=== PATIENT | male | born 1965 | race African-American/Black ===

== ENCOUNTER 2018-05-21 06:21 | Emergency (ER) | payer MEDICAID ==
[~2018-05-21] VITALS: Ht 182.9 cm; Wt 88.6 kg
[~2018-05-21 06:21] MED LIST: AMLO-511 PO; ARIP5TAB8 PO; OMEP20 PO
[2018-05-21 07:32] LABS: EOSINOPHILS % (AUTO) 0.3 % (1.0-6.0); HEMATOCRIT 34.9 % (41-53); HEMOGLOBIN 11.8 g/dL (13.5-17.5); LYMPHOCYTES # (AUTO) 1.2 K/uL (1.0-4.8); LYMPHOCYTES % (AUTO) 14.1 % (22.0-44.0); MEAN CORPUSCULAR HEMOGLOBIN 29.8 pg (26.0-34.0); MEAN CORPUSCULAR HGB CONC 33.7 G/dL (31.0-37.0); MEAN CORPUSCULAR VOLUME 88 fL (80-100); MONOCYTES # (AUTO) 0.7 K/uL (0.1-1.0); MONOCYTES % (AUTO) 8.9 % (2.0-9.0); NEUTROPHILS # (AUTO) 6.2 K/uL (1.8-7.7); NEUTROPHILS % (AUTO) 75.7 % (40.0-70.0); PLATELET COUNT (AUTO) 387 K/uL (150-450); RED BLOOD CELL COUNT(AUTO) 3.95 MIL/uL (4.50-5.90); RED CELL DISTRIBUTION WIDTH 14.3 % (11.5-14.5)
[2018-05-21 07:39] LABS: ANION GAP 9 mmol/L (8-16); CALCIUM, TOTAL 8.5 mg/dL (8.8-10.5); CARBON DIOXIDE 25 mmol/L (22-29); CHLORIDE 110 mmol/L (98-107); CREATININE 1.09 mg/dL (0.60-1.30); GLOMERULAR FILTR. RATE CALC > 60 mL/min (>60); GLUCOSE,RANDOM 87 mg/dL (70-110); SODIUM SERUM 144 mmol/L (136-145); UREA NITROGEN, BLOOD 21 mg/dL (7-18)
[2018-05-21 07:45] LABS: ALANINE AMINOTRANSFERASE 52 U/L (12-78); ALBUMIN 3.2 g/dL (3.4-5.0); ALKALINE PHOSPHATASE 74 U/L (46-116); ASPARTATE AMINOTRANSFERASE 44 U/L (15-37); BILIRUBIN,TOTAL 0.6 mg/dL (0.1-1.0); TOTAL PROTEIN, SERUM 6.7 g/dL (6.4-8.2)
[2018-05-21] MEDS ORDERED: LORazepam 1 MG TABLET PO ONE (08:00)
[2018-05-21 14:37] VITALS: BP 118/74
[2018-05-21 14:48] LABS: AMPHET/METH SCREEN,URINE NEGATIVE (NEGATIVE); BARBITURATE SCREEN, URINE NEGATIVE (NEGATIVE); BENZODIAZEPINES SCREEN,URINE NEGATIVE (NEGATIVE); CANNABINOID SCREEN,URINE NEGATIVE (NEGATIVE); COCAINE SCREEN,URINE NEGATIVE (NEGATIVE); METHADONE SCREEN, URINE NEGATIVE (NEGATIVE); OPIATE SCREEN,URINE NEGATIVE (NEGATIVE); PHENCYCLIDINE SCREEN,URINE NEGATIVE (NEGATIVE)
== END 2018-05-21 14:39 | disposition home or self-care (01) ==
LOC: EMS 06:24
DX: F15.10 Other stimulant abuse, uncomplicated (principal); F20.9 Schizophrenia, unspecified; I10 Essential (primary) hypertension; F17.210 Nicotine dependence, cigarettes, uncomplicated
CPT/HCPCS: 36415; 80053; 80307; 85025; 99285; G0480

== ENCOUNTER 2019-01-15 19:41 | Inpatient (IN) | payer MEDICAID ==
[~2019-01-15] VITALS: Ht 185.4 cm; Wt 80.4 kg
[2019-01-16] MEDS ORDERED: DiphenhydrAMINE HCL 50 MG/ML VIAL IM ONE (02:15)
[2019-01-16] MEDS ORDERED: KETOROLAC TROMETHAMINE 60 MG/2 ML VIAL IM ONE (02:15)
[2019-01-16] MEDS ORDERED: HYDROmorphone 2 MG/ML SYRINGE IVP ONE (03:15)
[2019-01-16] MEDS ORDERED: MetroNIDAZOLE 750 MG/NACL 150 ML IV ONE (03:15)
[2019-01-16] MEDS ORDERED: MetroNIDAZOLE 500 MG/NACL 100 ML IV ONE (03:15)
[2019-01-16 03:34] LABS: BILIRUBIN,TOTAL 0.6 mg/dL (0.1-1.0); CALCIUM, TOTAL 8.6 mg/dL (8.8-10.5); CREATININE 2.4 mg/dL (0.60-1.30); POTASSIUM 5.4 mmol/L (3.5-5.1); TOTAL PROTEIN, SERUM 6.3 g/dL (6.4-8.2)
[2019-01-16 03:35] LABS: HEMOGLOBIN 16.4 g/dL (13.5-17.5); MEAN CORPUSCULAR HEMOGLOBIN 28.7 pg (26.0-34.0); MEAN CORPUSCULAR HGB CONC 32.8 G/dL (31.0-37.0); MEAN CORPUSCULAR VOLUME 87 fL (80-100); RED BLOOD CELL COUNT(AUTO) 5.72 MIL/uL (4.50-5.90); RED CELL DISTRIBUTION WIDTH 13.8 % (11.5-14.5)
[2019-01-16 03:41] LABS: PLATELET COUNT (AUTO) 495 K/uL (150-450)
[2019-01-16] MEDS ORDERED: SODIUM CHLORIDE 0.9% 2,400 ML IV ONE (03:47)
[2019-01-16 03:59] LABS: BAND NEUTROPHILS % (MANUAL) 7 % (0-5); LYMPHOCYTES % (MANUAL) 1 % (22-44); MONOCYTES % (MANUAL) 8 % (2-9); SEGMENTED NEUTROPHILS % 84 % (40-70)
[2019-01-16 04:00] LABS: WBC MORPHOLOGY HYPERSEGMENTED NEUT
[2019-01-16] MEDS ORDERED: CefTRIAXone 1 GM/DEXTROSE 50 ML IV ONE (04:00)
[2019-01-16 04:21] LABS: LACTIC ACID 2.7 mmol/L (0.4-2.0)
[2019-01-16] MEDS ORDERED: CefTRIAXone SODIUM 2 GM in DEXTROSE 5%-WATER 50 ML IV ONE (04:30)
[2019-01-16 05:24] LABS: APPEARANCE,URINE CLOUDY (CLEAR); GLUCOSE, URINE (UA) NEGATIVE (NEGATIVE); KETONES,URINE TRACE mg/dL (NEGATIVE); LEUKOCYTE ESTERASE ,URINE NEGATIVE (NEGATIVE); NITRATE,URINE NEGATIVE (NEGATIVE); OCCULT BLOOD,URINE NEGATIVE (NEGATIVE); PROTEIN,URINE POS 1+ (NEGATIVE)
[2019-01-16 05:25] LABS: BILIRUBIN,URINE PRELIM. POSITIVE (NEGATIVE)
[2019-01-16 05:29] LABS: AMPHET/METH SCREEN,URINE POSITIVE (NEGATIVE); BARBITURATE SCREEN, URINE NEGATIVE (NEGATIVE); BENZODIAZEPINES SCREEN,URINE NEGATIVE (NEGATIVE); CANNABINOID SCREEN,URINE NEGATIVE (NEGATIVE); COCAINE SCREEN,URINE NEGATIVE (NEGATIVE); METHADONE SCREEN, URINE NEGATIVE (NEGATIVE); OPIATE SCREEN,URINE NEGATIVE (NEGATIVE)
[2019-01-16] MEDS ORDERED: LEVOFLOXACIN 750 MG/D5% WATER 150 ML IV ONE (05:45)
[2019-01-16 05:58] LABS: PHENCYCLIDINE SCREEN,URINE NEGATIVE (NEGATIVE)
[2019-01-16] MEDS ORDERED: VANCOMYCIN HCL 1 GM/D5% WATER 200 ML IV ONE (06:00)
[2019-01-16 06:08] LABS: BACTERIA,URINE Few /HPF (None Seen); RBC,URINE 0-2 /HPF (0-2); SQUAMOUS EPITHELIAL CELL,UR Rare /LPF (None Seen); WBC,URINE 0-2 /HPF (0-5)
[2019-01-16 08:29] VITALS: BP 100/63
[2019-01-16] MEDS ORDERED: SODIUM CHLORIDE 0.9% 500 ML IV ONE (09:32)
[2019-01-16 11:40] VITALS: BP 116/51
[2019-01-16] MEDS ORDERED: *CLINICAL-LEVOFLOXACIN IVPB DOSING CLINICAL ONE (11:45)
[2019-01-16] MEDS ORDERED: MORPHINE SULFATE 2 MG/ML SYRINGE IVP PRN (11:45)
[2019-01-16] MEDS ORDERED: PROPOFOL 1% 20 ML VIAL IVP ONE (12:00)
[2019-01-16] MEDS ORDERED: MetroNIDAZOLE 500 MG/NACL 100 ML IV SCH (12:00)
[2019-01-16] MEDS ORDERED: FentaNYL CITRATE-PF 100 MCG/2 ML VIAL IVP ONE (12:00)
[2019-01-16] MEDS ORDERED: 0.9% SODIUM CHLORIDE 10 ML VIAL IVP ONE (12:00)
[2019-01-16] MEDS ORDERED: PHENYLEPHRINE HCL 10 MG/ML VIAL IVP ONE (12:00)
[2019-01-16] MEDS ORDERED: ROCURONIUM BROMIDE 10 MG/ML 5 ML VIAL IVP ONE (12:00)
[2019-01-16] MEDS ORDERED: MIDAZOLAM HCL 2 MG/2 ML VIAL IVP ONE (12:00)
[2019-01-16] MEDS ORDERED: SUCCINYLCHOLINE CHLORIDE 20 MG/ML 10 ML VIAL IVP ONE (12:00)
[2019-01-16] MEDS ORDERED: EPHEDrine SULFATE 50 MG/ML VIAL IM ONE (12:00)
[2019-01-16] MEDS ORDERED: SODIUM CHLORIDE 0.9% 1,000 ML IV ONE ×2 (12:23→13:05)
[2019-01-16] MEDS: SODIUM CHLORIDE 0.9% 1,000 ML IV SCH ×2 (12:24→21:45)
[2019-01-16] MEDS ORDERED: SODIUM CL IRRIG SOLN BAG 3,000 ML IRRIG ONE (13:45)
[2019-01-16] MEDS ORDERED: HYDROmorphone 2 MG/ML SYRINGE IVP PRN ×2 (14:15→14:45)
[2019-01-16] MEDS ORDERED: FentaNYL CITRATE-PF 100 MCG/2 ML VIAL IVP PRN (14:15)
[2019-01-16] MEDS ORDERED: MEPERIDINE-PF 25 MG/ML VIAL IVP PRN (14:15)
[2019-01-16] MEDS ORDERED: MORPHINE SULFATE 4 MG/ML SYRINGE IVP PRN (14:45)
[2019-01-16] MEDS ORDERED: HYDROCODONE/ACETAMINOPHEN 5-325 MG TABLET PO PRN (14:45)
[2019-01-16] MEDS ORDERED: CLINDAMYCIN 900 MG/D5% WATER 50 ML IV SCH (16:00)
[2019-01-16] MEDS ORDERED: *CLINICAL-CEFEPIME DOSING CLINICAL ONE (17:00)
[2019-01-16 17:09] VITALS: BP 155/96
[2019-01-16] MEDS ORDERED: CEFEPIME HCL 1 GM in DEXTROSE 5%-WATER 50 ML IV SCH (18:00)
[2019-01-16 19:45] VITALS: BP 153/106
[2019-01-16] MEDS ORDERED: OXYGEN THERAPY IH SCH (20:00)
[2019-01-16] MEDS ORDERED: FAMOTIDINE 20 MG TABLET PO SCH (21:00)
[2019-01-16] MEDS ORDERED: MORPHINE SULFATE 4 MG/ML SYRINGE IM PRN (23:45)
[2019-01-16] MEDS ORDERED: HYDROmorphone 2 MG/ML SYRINGE IM PRN (23:45)
[2019-01-17] MEDS ORDERED: CLINDAMYCIN HCL 300 MG CAPSULE PO SCH ×2
[2019-01-17 01:00] VITALS: BP 89/57
[2019-01-17 01:23] LABS: ABG A-A DIFF O2 350.1 mmHg (10-20.0); ABG BASE EXCESS -30.4 mmol/L (-2.0-3.0); ABG CARBOXYHEMOGLOBIN 0.2 % (0.0-1.5); ABG METHEMOGLOBIN 0.3 % (0.0-1.5); ABG OXYGEN CONTENT 24.7 mL/dL (15.0-23.0); ABG OXYGEN SATURATION 99.6 % (95.0-98.0); ABG OXYHEMOGLOBIN 99.1 % (94.0-100.0); ABG PCO2 25 mmHg (35-45); ABG TOTAL HEMOGLOBIN 17.1 G/dL (12.0-18.0); PO2, ARTERIAL BG 341.8 mmHg (84.0-92.0); SOURCE, BLOOD GAS ARTERIAL; TEMPERATURE, FAHRENHEIT, BG 95.8 FAHREN (96.0-98.6)
[2019-01-17] MEDS ORDERED: NOREPINEPHRINE 4 MG/D5%-WATER 250 ML IV ONE (01:31)
[2019-01-17 01:32] LABS: ABG PH 6.819 (7.35-7.450); O2 DEVICE,BLOOD GAS VENTILATOR (ROOM AIR); PEEP,BG 5 cm H2O; SITE, BLOOD GAS RT RADIAL; VT, ABG 500 ml
[2019-01-17] MEDS ORDERED: SODIUM BICARBONATE [ADULT] 8.4% 50 MEQ/50 ML SYRINGE IVP ONE ×3 (01:37→06:56)
[2019-01-17] MEDS ORDERED: SODIUM BICARBONATE 150 MEQ in DEXTROSE 5%-WATER 1,000 ML IV SCH (02:00)
[2019-01-17] MEDS: NOREPINEPHRINE 4 MG/D5%-WATER 250 ML IV PRN ×2 (02:04→05:48)
[2019-01-17] MEDS ORDERED: CLINDAMYCIN 900 MG/D5% WATER 50 ML IV SCH (03:00)
[2019-01-17] MEDS ORDERED: PROPOFOL 1000 MG/ISO-OSM 100 ML IV PRN (03:00)
[2019-01-17 04:00] VITALS: BP 68/40
[2019-01-17] MEDS ORDERED: PHENYLEPHRINE 200 MG/D5%-WATER 250 ML IV PRN (04:38)
[2019-01-17] MEDS ORDERED: VASOPRESSIN 40 UNITS in DEXTROSE 5%-WATER 98 ML IV PRN (04:38)
[2019-01-17 05:05] VITALS: BP 54/36
[2019-01-17 05:28] LABS: GLUCOMETER DEV NAME(LOC) 6N.1; GLUCOSE,POINT OF CARE 63 MG/DL (70-110)
[2019-01-17 05:28] LABS: GLUCOMETER DEV NAME(LOC) 6N.1; GLUCOSE,POINT OF CARE 252 MG/DL (70-110)
[2019-01-17] MEDS ORDERED: SODIUM CHLORIDE 0.9% 250 ML IV ONE (05:47)
[2019-01-17] MEDS ORDERED: SODIUM CHLORIDE 0.9% 500 ML IV ONE (06:38)
[2019-01-17] MEDS ORDERED: CALCIUM GLUCONATE 100 MG/ML 10 ML IVP ONE (06:56)
[2019-01-17] MEDS ORDERED: SUCCINYLCHOLINE CHLORIDE 20 MG/ML 10 ML VIAL IV ONE (06:56)
[2019-01-17] MEDS ORDERED: EPINEPHrine 1:10,000 [1 MG/10 ML] SYRINGE IVP ONE (06:56)
[2019-01-17] MEDS ORDERED: ATROPINE SULFATE 0.1 MG/ML 10 ML SYRINGE IVP ONE (06:56)
[2019-01-17] MEDS ORDERED: ETOMIDATE 2 MG/ML 10 ML VIAL IV ONE (06:56)
[2019-01-17] MEDS ORDERED: DEXTROSE 50%-WATER 25 GM/50 ML SYRINGE IVP ONE (06:56)
[2019-01-17] MEDS ORDERED: VANCOMYCIN HCL 1 GM/D5% WATER 200 ML IV SCH (08:00)
[2019-01-17 08:34] LABS: GLUCOSE,POINT OF CARE 140 MG/DL (70-110)
[2019-01-17] MEDS ORDERED: HEPARIN SODIUM,PORCINE 5,000 UNITS/ML VIAL SQ SCH (09:00)
[2019-01-17] MEDS ORDERED: SODIUM CHLORIDE 0.9% 1,000 ML IV ONE (13:00)
[2019-01-18] MEDS ORDERED: LEVOFLOXACIN 750 MG/D5% WATER 150 ML IV SCH (11:00)
== END 2019-01-17 06:57 | disposition expired | DRG 720 ==
LOC: EMS 19:42 → 4E 01-16 05:55 → 6N 01-16 21:00 → ICU 01-17 00:49
PROVIDERS: ADMIT Internal Medicine; ATTEND Internal Medicine
PROC: 0JBC0ZZ Excision of Pelvic Region Subcutaneous Tissue and Fascia, Open Approach (ICD-10-PCS; 2019-01-16)
PROC: 0JBB0ZZ Excision of Perineum Subcutaneous Tissue and Fascia, Open Approach (ICD-10-PCS; 2019-01-16)
PROC: 5A1935Z Respiratory Ventilation, Less than 24 Consecutive Hours (ICD-10-PCS; principal; 2019-01-17)
PROC: 0BH17EZ Insertion of Endotracheal Airway into Trachea, Via Natural or Artificial Opening (ICD-10-PCS; 2019-01-17)
DX: A41.9 Sepsis, unspecified organism (principal); J96.01 Acute respiratory failure with hypoxia; E43 Unspecified severe protein-calorie malnutrition; R65.21 Severe sepsis with septic shock; M72.6 Necrotizing fasciitis; I46.9 Cardiac arrest, cause unspecified; N17.9 Acute kidney failure, unspecified; L03.314 Cellulitis of groin; N50.89 Other specified disorders of the male genital organs; F20.9 Schizophrenia, unspecified; E87.1 Hypo-osmolality and hyponatremia; F20.0 Paranoid schizophrenia; I10 Essential (primary) hypertension; F19.10 Other psychoactive substance abuse, uncomplicated; L03.315 Cellulitis of perineum; N45.1 Epididymitis; Z87.891 Personal history of nicotine dependence; Z99.11 Dependence on respirator [ventilator] status; Z88.0 Allergy status to penicillin; Z88.8 Allergy status to other drugs, medicaments and biological substances; Z91.013 Allergy to seafood; Z91.19 Patient's noncompliance with other medical treatment and regimen; Z99.2 Dependence on renal dialysis
CPT/HCPCS: 36600; 51702; 74176; 76700; 76870; 82805; 83605; 87040; 87070; 87081; 87205; 88304; 92950; 94002; 96365; 96366; 96367; 96372; 96375; G0378; J0171; J0330; J0461; J0610; J0692; J0696; J1170; J1200; J1885; J1956; J2250; J2270; J2370; J2704; J3010; J3370; J3490; J7030; J7040; J7050; J7060